=== PATIENT | male | born 1930 | race Caucasian/White ===

== ENCOUNTER 2019-10-30 22:55 | Emergency (ER) | payer OTHER, SELFPAY ==
--- OUTSIDE RECORDS SUMMARY | 2019-10-30 22:57 | XMS REPORT | Summary of Care ---
:1930 Author Organization [facility] - Health Address [address] [place] [address] Care Team Providers Name Role Phone Jazmyn Mcfadden MD Primary Care Provider Encounter Details Date Type Department Care Team Description 06/23/2019 Orders Only [facility] Doctor Unassigned, No [address] [facility] [place] [address] [address] [place] [address] Allergies No Known Allergiesdocumented as of this encounter (statuses as of 09/29/2019) Medications Medication Sig Dispensed Refills Start Date End Date Status carvedilol (COREG) Take 25 mg by mouth 0 Active 25 mg tablet 2 (two) times daily. digoxin (LANOXIN) Take 125 mcg by 0 Active 125 mcg tablet mouth daily. Take every other day warfarin (COUMADIN) Take 2.5 mg by mouth 0 Active 2.5 mg daily. Indications: tabletIndications: Pt takes 2.5 mg Q Pt takes 2.5 mg Q M/W/F M/W/F predniSONE 10 mg Prednisone 20 mg 12 tablet 0 04/03/2019 Active tabletIndications: daily for 3 days. SOB (shortness of Then 10 mg x 3 days. breath) Then 5 mg x 3 days. documented as of this encounter (statuses as of 09/29/2019) Active Problems Problem Noted Date NSVT (nonsustained ventricular tachycardia) 04/01/2019 NSTEMI (non-ST elevated myocardial infarction) 019 Acute diastolic congestive heart failure 03/29/2019 Essential hypertension 03/29/2019 Chronic atrial fibrillation 03/29/2019 Obesity (BMI 30-39.9) 03/29/2019 Hypertensive urgency 03/29/2019 Syncope 06/12/2015 documented as of this encounter (statuses as of 09/29/2019) Immunizations Name Administration Dates Next Due Influenza High Dose 04/03/2019 Td 06/12/2015 documented as of this encounter Social History Tobacco Use Types Packs/Day Years Used Date Former Smoker Cigarettes Smokeless Tobacco: Never Used Alcohol Use Drinks/Week oz/Week Comments No 0 Standard drinks or equivalent 0.0 Financial Resource Strain Answer Date Recorded How hard is it for you to pay for the very basics like Not h shakir at all 03/29/2019 food, housing, medical care, and heating? Food Insecurity Answer Date Recorded Within the past 12 months, you worried that your food would Never true 03/29/2019 run out before you got money to buy more. Within the past 12 months, the food you bought just didn't N ever true 03/29/2019 last and you didn't have money to get more. Transportation Needs Answer Date Recorded In the past 12 months, has lack of transportation kept you f rom No 03/29/2019 medical appointments or from getting medications? In the past 12 months, has lack of transportation kept you f rom No 03/29/2019 meetings, work, or getting things needed for daily living? Sex Assigned at Date Recorded Not on file Job Start Date Occupation Industry Not on file Not on file Not on file Travel History Travel Start Travel End No recent travel history available. documented as of this encounter Last Filed Vital Signs Not on filedocumented in this encounter Plan of Treatment Health Maintenance Due Date Last Done Comments DTaP,Tdap,and Td Vaccines (1 - Tdap) 1941 06/12/2015 Zoster Recombinant Vaccine (SHINGRIX) (1 of 2) 1982 Medicare Wellness Visit 1997 PNEUMOCOCCAL VACCINES 65+ (1 of 2 - PCV13) 1997 INFLUENZA VACCINE Completed 04/03/2019 documented as of this encounter Implants Implanted Type Area Rayon Winder Device Shelf Model / Identifier Expiration Date Ser ial / Lot Lens LENS Right: Hang 02/05/2020 [id number] / Implanted: Qty: 1 on 04/24/2015 by Berry Solo MD at [facility] Eye 1 [id number] / [id number] Acrysof Iq LENS Left: Eye Hang 02/05/2020 SN60WF / Implanted: Qty: 1 on 05/08/2015 by Berry Solo MD at [facility] 1 [id number] / [id number] 18 documented as of this encounter Procedures Procedure Name Priority Date/Time Associated Diagnosis Comme nts HOME HEALTH - OTHER Routine 06/23/2019 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 [facility] Medicare & B 82 [id number] [place] LISA [id number] AETNA AETNA INDEMNITY [id number] 2013-Lia Indemnity t documented as of this encounter
--- OUTSIDE RECORDS SUMMARY | 2019-10-30 22:57 | XMS REPORT | Summary of Care ---
:1930 Author Organization [facility] - Health Address [address] [place] [address] Care Team Providers Name Role Phone Jazmyn Mcfadden MD Primary Care Provider Encounter Details Date Type Department Care Team Description 06/30/2019 Orders Only [facility] Doctor Unassigned, No 301 [facility] [place] [address] [address] [place] [address] Allergies No Known Allergiesdocumented as of this [...] of this encounter Implants Implanted Type Area Electronic Prepress System Operator Device Shelf Model / Identifier Expiration Date Ser ial / Lot Lens LENS Right: Hang 02/05/2020 SN60WF / Implanted: Qty: 1 on 04/24/2015 by Berry Solo MD at [facility] Eye 1 [id number] / [id number] Acrysof Iq LENS Left: Eye Hang 02/05/2020 SN60WF / Implanted: Qty: 1 on 05/08/2015 by Berry Solo MD at [facility] 1 [id number] / [id number] 1 18 documented as of this encounter Procedures Procedure Name Priority Date/Time Associated Diagnosis Comme nts HOME HEALTH - OTHER Routine 06/30/2019 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 Medicare & B 82 [id number] [place] LISA [id number] AETNA AETNA INDEMNITY [id number] 2013-Lia Indemnity t documented as of this encounter
--- OUTSIDE RECORDS SUMMARY | 2019-10-30 22:57 | XMS REPORT | Summary of Care ---
:1930 Author Organization [facility] - Health Address [address] [place] [address] Care Team Providers Name Role Phone Jazmyn Mcfadden MD Primary Care Provider Encounter Details Date Type Department Care Team Description 06/27/2019 Orders Only [facility] Doctor Unassigned, No 301 [facility] [place] [address] [address] [place] [address] Allergies No Known Allergiesdocumented as of this encounter (statuses as of 09/22/2019) Medications Medication Sig Dispensed Refills Start Date [...] as of this encounter (statuses as of 09/22/2019) Active Problems Problem Noted Date NSVT (nonsustained ventricular tachycardia) 04/01/2019 NSTEMI (non-ST elevated myocardial infarction) 019 Acute diastolic congestive heart failure 03/29/2019 Essential hypertension 03/29/2019 Chronic atrial fibrillation 03/29/2019 Obesity (BMI 30-39.9) 03/29/2019 Hypertensive urgency 03/29/2019 Syncope 06/12/2015 documented as of this encounter (statuses as of 09/22/2019) Immunizations Name Administration Dates Next Due Influenza [...] of this encounter Implants Implanted Type Area Vp Strategic Planning Device Shelf Model / Identifier Expiration Date Ser ial / Lot Lens LENS Right: Hang 02/05/2020 SN60WF / Implanted: Qty: 1 on 04/24/2015 by Berry Solo MD at [facility] Eye 1 [id number] / [id number] Acrysof Iq LENS Left: Eye Hang 02/05/2020 SN60WF / Implanted: Qty: 1 on 05/08/2015 by Berry Solo MD at [facility] 1 [id number] / [id number] 1 18 documented as of this encounter Procedures Procedure Name Priority Date/Time Associated Diagnosis Comme nts HOME HEALTH - OTHER Routine 06/27/2019 12:01 AM 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 Medicare & B 82 [id number] [place] L[place] [id number] AETNA AETNA INDEMNITY [id number] 2013-Lia Indemnity t documented as of this encounter
--- OUTSIDE RECORDS SUMMARY | 2019-10-30 22:57 | XMS REPORT | Summary of Care ---
:1930 Author Organization [facility] - Health Address [address] [place] [address] Care Team Providers Name Role Phone Jazmyn Mcfadden MD Primary Care Provider Encounter Details Date Type Department Care Team Description 07/04/2019 Orders Only [facility] Doctor Unassigned, No 301 [facility] [place] [address] [address] [place] [address] Allergies No Known Allergiesdocumented as of this [...] of this encounter Implants Implanted Type Area Corporate Development Manager Device Shelf Model / Identifier Expiration Date Ser ial / Lot Lens LENS Right: Hang 02/05/2020 SN60WF / Implanted: Qty: 1 on 04/24/2015 by Berry Solo MD at [facility] Eye 1 [id number] / [id number] Acrysof Iq LENS Left: Eye Hang 02/05/2020 SN60WF / Implanted: Qty: 1 on 05/08/2015 by Berry Solo MD at [facility] 1 [id number] / [id number] 1 18 documented as of this encounter Procedures Procedure Name Priority Date/Time Associated Diagnosis Comme nts HOME HEALTH - OTHER Routine 07/04/2019 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 [facility] Medicare & B 82 [id number] [place] LISA [id number] AETNA AETNA INDEMNITY [id number] 2013-Lia Indemnity t documented as of this encounter
--- OUTSIDE RECORDS SUMMARY | 2019-10-30 22:57 | XMS REPORT ---
:1930 Author Organization [facility] t Address [address] [place] [address] Care Team Providers Name Role Phone Doctor Unassigned, Name Attending Clinician Unavailable 1, Lab Attending Clinician Unavailable Problems This patient has no known problems. Allergies, Adverse Reactions, Alerts This patient has no known allergies or adverse reactions. Medications This patient has no known medications. Procedures This patient has no known procedures. Encounters Start End Encounter Admission Attending Care Care Encounter Source Date/Time Date/Time Type Type Clinicians Facility Department ID 2019-07-25 2019-07-25 Orders Doctor GONZALEZ [id number] 00:00:00 00:00:00 Only UnassignedELIZABETH [id number] [place] [facility] [id number] 2019-07-14 2019-07-14 Orders Doctor GONZALEZ [id number] 00:00:00 00:00:00 Only UnassignedELIZABETH [id number] [place] [facility] [id number] [id number] [id number] 2019-07-05 2019-07-05 Orders Doctor GONZALEZ [id number] 00:00:00 00:00:00 Only Unassigned, ELIZABETH [id number] [place] [facility] [id number] [id number] 2019-07-04 2019-07-04 Orders Doctor GONZALEZ [id number] 00:00:00 00:00:00 Only UnassignedELIZABETH [id number] [place] [facility] [id number] [id number] 2019-06-30 2019-06-30 Orders Doctor LISA Kristine.2.840.114 [id number] 00:00:00 00:00:00 Only Unassigned, ELIZABETH [id number] [facility] 4.2.7.2.686 [id number] 2019-06-27 2019-06-27 Orders Doctor GONZALEZ Kristine.2.840.114 [id number] 00:00:00 00:00:00 Only Unassigned, ELIZABETH 350.1.13.10 [facility] 4.2.7.2.686 [id number] 2019-06-23 2019-06-23 Orders Doctor LISA Kristine.2.840.114 [id number] 00:00:00 00:00:00 Only Unassigned, ELIZABETH 350.1.13.10 [facility] 4.2.7.2.686 [id number] [id number] 2019-06-20 2019-06-20 Dial Printer 1, Adc [facility] 1.2.840.114 [id number] 14:37:41 14:52:41 Visit [place] 350.1.13.10 [place] 4.2.7.2.686 [place] [id number] 2019-06-16 2019-06-16 Orders Doctor GONZALEZ Kristine.2.840.114 [id number] 00:00:00 00:00:00 Only Unassigned, ELIZABETH 350.1.13.10 [place] [facility] 4.2.7.2.686 [id number] [id number] 2019-06-06 2019-06-06 Orders Doctor GONZALEZ Kristine.2.840.114 [id number] 00:00:00 00:00:00 Only Unassigned, ELIZABETH 350.1.13.10 [facility] 4.2.7.2.686 [id number] Results This patient has no known results.
[2019-10-30 23:21] LABS: Absolute Lymphocytes (CBC) 1.1 K/uL (0.7-4.9); Basophils % 0.8 % (0-1.3); Hematocrit 36.7 % (39.6-49.0); Lymphocytes % 18.3 % (15.3-44.8); MPV 8.9 fL (7.6-11.3); RBC Red Blood Cell Count 4.23 M/uL (4.33-5.43)
[2019-10-30 23:22] LABS: Protime INR 2.48
[2019-10-30 23:37] LABS: Albumin 3.2 g/dL (3.4-5.0); Bilirubin Direct 0.2 mg/dL (0-0.2); Bilirubin Total 0.8 mg/dL (0.2-1.0); Magnesium 2.4 mg/dL (1.8-2.4); Potassium 4.5 mmol/L (3.5-5.1); Protein, Total 6.4 g/dL (6.4-8.2); Troponin (Emerg Dept Use Only) 0.04 ng/mL (0.0-0.045)
[2019-10-31 01:18] VITALS: TEMP 98.6
[2019-10-31 01:20] VITALS: BP 133/89; O2SAT 98
--- NOTE | 2019-10-31 17:41 | RAD REPORT ---
EXAM DESCRIPTION: CT - Head Brain Wo Cont - 10/31/2019 2:51 am CLINICAL HISTORY: 89 years Male CONFUSED TECHNIQUE: Contiguous axial CT images obtained through the brain without IV contrast. Coronal and sa gittal reformatted images also provided. This CT exam was performed according to our departmental dose-optimization program, which includes on e or more of the following dose reduction techniques: automated exposure control, adjustment of the m A and/or kV according to patient size, and/or use of iterative reconstruction technique. COMPARISON: No prior exams provided for comparison. FINDINGS: There is no intracranial hemorrhage, extraaxial collection, or evidence of acute transcort ical infarction. Patchy foci of low attenuation within the periventricular and subcortical white matter are most lashaun tible with chronic microvascular disease. There is age-appropriate diffuse volume loss without mass e ffect or midline shift. Vascular calcifications are noted. No lesion of the skull base or calvarium is identified. The parana jodie sinuses and mastoid air cells are clear. IMPRESSION: No acute intracranial abnormality. Chronic microvascular changes and volume loss. Electronically signed by: Narcisa Akers MD 10/30/2019 11:45 PM CDT Due to temporary technical issues with the PACS/Fluency reporting system, reports are being signed by the in house radiologist without review as a courtesy to ensure prompt reporting. The interpreting r adiologist is fully responsible for the content of the report.
--- NOTE | 2019-11-01 13:10 | RAD REPORT ---
EXAM DESCRIPTION: RAD - CHEST SINGLE VIEW CLINICAL HISTORY: Transient alteration of awareness, shortness of breath. COMPARISON: None. TECHNIQUE: Potable chest was obtained 10/30/2019 tp1959 hours. FINDINGS: The lung volumes are low. Interstitial markings are prominent with baseline unknown, Heart size is within normal limits. Vasculature is accentuated by shallow inspiration. No focal consolidation is seen. Mild failure or volume overload could be masked. Early interstitial edema or infiltrate also potentially masked. No pneumothorax or large pleural effusion. Heart size is within normal range for portable imaging. IMPRESSION: 1. Low lung volume examination showing prominent interstitial pattern and vascular pattern. 2. As a shallow inspiration baseline examination mild failure or volume overload can't be excluded. Early interstitial edema or infiltrate can't be excluded.
--- NOTE | 2019-11-06 12:49 | EDPHYS ---
Physician Documentation [facility] Name: Jay Hathaway Age: 89 yrs Sex: Male : 1930 Arrival Date: 10/30/2019 Time: 22:55 Bed 6 Private MD: ED Physician Karl Guerrero HPI: 10/29 23:39 This 89 yrs old Male presents to ER via EMS with complaints of sent here from [facility] home for possible hallucinations for a month. 23:39 Onset: The symptoms/episode began/occurred gradually, 1 month(s) ago. Associated signs ma2 and symptoms: Pertinent negatives: agitation, blurred vision, chest pain, combativeness, diaphoresis, dizziness, headache. Current symptoms: In the emergency department the patient's symptoms are unchanged from the initial presentation. The patient has experienced similar episodes in the past. patient has no symptoms he is aox4, has ckd w baseline creatinine of 1.5 . Historical: - Home Meds: 23:12 aspirin 81 mg Oral chew 1 tab once daily [Active]; atorvastatin 20 mg oral tab 1 tab ea once daily [Active]; carvedilol 25 mg oral tab 1 tab 2 times per day [Active]; digoxin 125 mcg Oral tab 1 tab once daily [Active]; docusate sodium 100 mg Oral cap [Active]; furosemide 40 mg Oral tab [Active]; Miralax 17 gram Oral pwpk 1 packet once daily [Active]; spironolactone 25 mg Oral tab [Active]; warfarin 2.5 mg Oral tab 1 tab once daily [Active]; budesonide oral [Active]; ipratropium-albuterol 0.5 mg-3 mg(2.5 mg base)/3 mL Inhl neb [Active]; - PMHx: 23:03 Alzheimers; sg 23:12 Hypertension; Hyperlipidemia; COPD; ea - PSHx: 23:12 cataract surgery; ea - Immunization history:: Adult Immunizations unknown. - Social history:: Smoking status: unknown Patient/guardian denies using alcohol, street drugs, The patient lives with family. - Family history:: not pertinent. ROS: 23:39 Constitutional: Negative for fever, chills, and weight loss. ma2 23:39 All other systems are negative. Exam: 23:39 Constitutional: This is a well developed, well nourished patient who is awake, alert, ma2 and in no acute distress. Head/Face: Normocephalic, atraumatic. Eyes: Pupils equal round and reactive to light, extra-ocular motions intact. Lids and lashes normal. Conjunctiva and sclera are non-icteric and not injected. Cornea within normal limits. Periorbital areas with no swelling, redness, or edema. ENT: Nares patent. No nasal discharge, no septal abnormalities noted. Tympanic membranes are normal and external auditory canals are clear. Oropharynx with no redness, swelling, or masses, exudates, or evidence of obstruction, uvula midline. Mucous membranes moist. Neck: Trachea midline, no thyromegaly or masses palpated, and no cervical lymphadenopathy. Supple, full range of motion without nuchal rigidity, or vertebral point tenderness. No Meningismus. Chest/axilla: Normal chest wall appearance and motion. Nontender with no deformity. No lesions are appreciated. Cardiovascular: Regular rate and rhythm with a normal S1 and S2. No gallops, murmurs, or rubs. Normal PMI, no JVD. No pulse deficits. Respiratory: Lungs have equal breath sounds bilaterally, clear to auscultation and percussion. No rales, rhonchi or wheezes noted. No increased work of breathing, no retractions or nasal flaring. Abdomen/GI: Soft, non-tender, with normal bowel sounds. No distension or tympany. No guarding or rebound. No evidence of tenderness throughout. Back: No spinal tenderness. No costovertebral tenderness. Full range of motion. Skin: Warm, dry with normal turgor. Normal color with no rashes, no lesions, and no evidence of cellulitis. MS/ Extremity: Pulses equal, no cyanosis. Neurovascular intact. Full, normal range of motion. Neuro: Awake and alert, GCS 15, oriented to person, place, time, and situation. Cranial nerves II-XII grossly intact. Motor strength 5/5 in all extremities. Sensory grossly intact. Cerebellar exam normal. Normal gait. Vital Signs: 23:04 BP 142 / 80; Pulse 68; Resp 19; Temp 98.6; Pulse Ox 97% on R/A; Weight 104.33 kg; ea Height 6 ft. 1 in. (185.42 cm); 10/30 00:26 BP 133 / 89; Pulse 87; Resp 19; Pulse Ox 98% on R/A; ea 10/29 23:04 Body Mass Index 30.34 (104.33 kg, 185.42 cm) ea MDM: 10/29 22:59 Patient medically screened. ma2 23:39 Differential Diagnosis: electrolyte abnormality, alcohol intoxication, overdose, ma2 pneumonia, UTI, volume depletion. Data reviewed: vital signs, nurses notes. Counseling: I had a detailed discussion with the patient and/or guardian regarding: the historical points, exam findings, and any diagnostic results supporting the discharge/admit diagnosis, the presence of at least one elevated blood pressure reading (>120/80) during this emergency department visit, the need for outpatient follow up. Response to treatment: There is no appreciated change of the patient's symptoms at this time. ED course: he is here for occasional hallucinations that is been gong on for weeks, no ams exam is wnl, vs stayed wnl thoughout er stay. imaging and workup all wnl except elevated creatinine which is at baseline. he will see his pcp for halucinations . 10/29 23:07 Order name: Basic Metabolic Panel; Complete Time: 23:39 wv2 10/29 23:07 Order name: CBC with Diff; Complete Time: 23:39 [facility] 10/29 23:07 Order name: LFT's; Complete Time: 23:39 wv2 10/29 23:07 Order name: Magnesium; Complete Time: 23:39 [facility] 10/29 23:07 Order name: NT PRO-BNP; Complete Time: 23:39 wv2 10/29 23:07 Order name: PT-INR; Complete Time: 23:39 [facility] 10/29 23:07 Order name: Troponin (emerg Dept Use Only); Complete Time: 23:39 wv2 10/29 23:07 Order name: XRAY Chest (1 view) [facility] 10/29 23:07 Order name: Cardiac monitoring; Complete Time: 23:14 wv2 10/29 23:07 Order name: EKG - Nurse/Tech; Complete Time: 23:14 [facility] 10/29 23:07 Order name: IV Saline Lock; Complete Time: 23:14 [facility] 10/29 23:07 Order name: Labs collected and sent; Complete Time: 23:14 [facility] 10/29 23:07 Order name: O2 Per Protocol; Complete Time: 23:14 ma2 10/29 23:07 Order name: CT Head Brain wo Cont ma2 10/29 23:07 Order name: O2 Sat Monitoring; Complete Time: 23:14 ma2 Administered Medications: No medications were administered Disposition: 10/31/19 00:44 Discharged to Home. Impression: Hallucinations, unspecified. - Condition is Stable. - Medication Reconciliation Form, Thank You Letter, Antibiotic Education, Prescription Opioid Use form. - Follow up: Private Physician; When: Tomorrow; Reason: Continuance of care. Signatures: Dispatcher [employer] EDJun Motley RN RN sg Antunez, Elena, RN RN ea Alzahri, Mohammad, MD MD ma2 Corrections: (The following items were deleted from the chart) 10/30 00:58 00:44 10/31/2019 00:44 Discharged to Home. Impression: Hallucinations, unspecified. sg Condition is Stable. Forms are Medication Reconciliation Form, Thank You Letter, Antibiotic Education, Prescription Opioid Use. Follow up: Private Physician; When: Tomorrow; Reason: Continuance of care. ma2
--- NOTE | 2019-11-06 12:49 | ER ---
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 pt was last known well 10/28 during the AM, unsure specifically what time. the pt is normally aa\T\ox4, but this evening the staff report his is not aware of his surroundings and cannot remember where he is from time to time. Coronavirus screen: Proceed with normal triage. Ebola Screen: Patient negative for fever greater than or equal to 101.5 degrees Fahrenheit, and additional compatible Ebola Virus Disease symptoms Patient denies exposure to infectious person. Patient denies travel to an Ebola-affected area in the 21 days before illness onset. No symptoms or risks identified at this time. Initial Sepsis Screen: Does the patient meet any 2 criteria? No. Patient's initial sepsis screen is negative. Does the patient have a suspected source of infection? No. Patient's initial sepsis screen is negative. Risk Assessment: Do you want to hurt yourself or someone else? Patient reports no desire to harm self or others. Onset of symptoms was October 30, 2019. Care prior to arrival: Glucose check: 123. Transition of care: patient was received from another setting of care (long-term care facility), [facility]. 23:01 Method Of Arrival: EMS: [facility] sg 23:01 Acuity: AJIT 3 sg Historical: - Home Meds: 23:12 aspirin 81 mg Oral chew 1 tab once daily [Active]; atorvastatin 20 mg oral tab 1 tab ea once daily [Active]; carvedilol 25 mg oral tab 1 tab 2 times per day [Active]; digoxin 125 mcg Oral tab 1 tab once daily [Active]; docusate sodium 100 mg Oral cap [Active]; furosemide 40 mg Oral tab [Active]; Miralax 17 gram Oral pwpk 1 packet once daily [Active]; spironolactone 25 mg Oral tab [Active]; warfarin 2.5 mg Oral tab 1 tab once daily [Active]; budesonide oral [Active]; ipratropium-albuterol 0.5 mg-3 mg(2.5 mg base)/3 mL Inhl nebu [Active]; - PMHx: 23:03 Alzheimers; sg 23:12 Hypertension; Hyperlipidemia; COPD; ea - PSHx: 23:12 cataract surgery; ea - Immunization history:: Adult Immunizations unknown. - Social history:: Smoking status: unknown Patient/guardian denies using alcohol, street drugs, The patient lives with family. - Family history:: not pertinent. Screenin:06 Abuse screen: Denies threats or abuse. Nutritional screening: No deficits noted. ea Tuberculosis screening: No symptoms or risk factors identified. Fall Risk None identified. Assessment: 23:06 General: Appears comfortable, Behavior is calm, cooperative. Pain: Denies pain. Neuro: rv Level of Consciousness is awake, alert, obeys commands, Oriented to person, place, situation. Cardiovascular: Patient's skin is warm and dry. Respiratory: Airway is patent Breath sounds are clear bilaterally. Derm: Skin with poor turgor. 10/30 00:29 Reassessment: Pt resting with eyes close, respirations even and unlabored. Chest ea expansions even and symmetrical. Vital Signs: 10/29 23:04 BP 142 / 80; Pulse 68; Resp 19; Temp 98.6; Pulse Ox 97% on R/A; Weight 104.33 kg; ea Height 6 ft. 1 in. (185.42 cm); 10/30 00:26 BP 133 / 89; Pulse 87; Resp 19; Pulse Ox 98% on R/A; ea 10/29 23:04 Body Mass Index 30.34 (104.33 kg, 185.42 cm) ea ED Course: 10/29 22:55 Patient arrived in ED. sg 22:57 Mika Sandoval RN is Primary Nurse. rv 22:59 Karl Guerrero MD is Attending Physician. ma2 23:01 Arm band placed on. sg 23:03 Triage completed. sg 23:05 Inserted saline lock: 20 gauge in right antecubital area, using aseptic technique. rv Blood collected. 23:06 Patient has correct armband on for positive identification. Bed in low position. Call ea light in reach. Side rails up X2. 23:35 X-ray completed. Patient tolerated procedure well. 1 23:36 Patient moved back from radiology. [facility] 23:36 XRAY Chest (1 view) In Process Unspecified. EDMS 23:38 CT Head Brain wo Cont In Process Unspecified. EDMS Administered Medications: No medications were administered Outcome: 10/30 00:44 Discharge ordered by . [facility] 00:58 Patient left the ED. sg Signatures: Dispatcher [employer] EDMS Jun Weinstein, RN RN Lamar Calvillo [facility] Jessenia Lehman, RN RN Karl Sun MD MD [facility] Mika Sandoval, RN RN rv
== END 2019-10-31 00:58 | disposition home or self-care (01) ==
LOC: ER 22:55
DX: R44.3 Hallucinations, unspecified (principal); I10 Essential (primary) hypertension; G30.9 Alzheimer's disease, unspecified; F02.80 Dementia in other diseases classified elsewhere, unspecified severity, without behavioral disturbance, psychotic disturbance, mood disturbance, and anxiety; E78.5 Hyperlipidemia, unspecified; J44.9 Chronic obstructive pulmonary disease, unspecified; Z79.01 Long term (current) use of anticoagulants; Z79.82 Long term (current) use of aspirin
CPT/HCPCS: 36415; 70450; 71045; 80048; 80076; 83735; 83880; 84484; 85025; 85610; 99284

== ENCOUNTER 2020-05-28 15:32 | Emergency (ER) | payer OTHER, SELFPAY ==
--- OUTSIDE RECORDS SUMMARY | 2020-05-28 15:35 | XMS REPORT | Continuity of Care Document ---
:1930 Author Organization [facility] t Address [address] [place] [address] Care Team Providers Name Role Phone Doctor [...] Facility Department ID 2019-07-25 2019-07-25 Orders Doctor LISA [id number] 00:00:00 00:00:00 Only Unassigned, ELIZABETH [id number] [place] [facility] [id number] [id number] 2019-07-14 2019-07-14 Orders Doctor GONZALEZ [id number] 00:00:00 00:00:00 Only Unassigned, ELIZABETH [id number] [place] [facility] [id number] [id number] 2019-07-05 2019-07-05 Orders Doctor LISA [id number] 00:00:00 00:00:00 Only Unassigned, ELIZABETH [id number] [place] [facility] [id number] [id number] 2019-07-04 2019-07-04 Orders Doctor LISA Carmona.[id number] 00:00:00 00:00:00 Only Unassigned, ELIZABETH [id number] [place] [facility] [id number] [id number] 2019-06-30 2019-06-30 Orders Doctor LISA Carmona.[id number] 00:00:00 00:00:00 Only Unassigned, ELIZABETH [id number] [place] [facility] [id number] [id number] 2019-06-27 2019-06-27 Orders Doctor LISA Carmona.[id number] [id number] 00:00:00 00:00:00 Only Unassigned, ELIZABETH [id number] [place] [facility] [id number] [id number] 2019-06-23 2019-06-23 Orders Doctor LISA Kristine.[id number] 00:00:00 00:00:00 Only Unassigned, ELIZABETH [id number] [place] [facility] [id number] [id number] 2019-06-20 2019-06-20 Polls Or Surveys Interviewer 1, Adc Lab [facility] [id number] 14:37:41 14:52:41 Visit [place] [id number] [place] [id number] [place] [id number] [id number] 2019-06-16 2019-06-16 Orders Doctor LISA Kristine.[id number] 00:00:00 00:00:00 Only Unassigned, [place]IZ[place]ETH [id number] [place] [facility] [id number] [id number] 2019-06-06 2019-06-06 Orders Doctor GONZALEZ Kristine.2.840.114 [id number] 00:00:00 00:00:00 Only Unassigned, ELIZABETH [id number] [place] [facility] [id number] [id number] Results This patient has no known results.
[2020-05-28 16:50] LABS: Hematocrit 34.9 % (39.6-49.0); Lymphocytes % 23.9 % (15.3-44.8); MPV 9.2 fL (7.6-11.3); RBC Red Blood Cell Count 4.09 M/uL (4.33-5.43)
[2020-05-28 16:54] LABS: Protime INR 1.16
--- NOTE | 2020-05-28 16:56 | RAD REPORT ---
EXAM DESCRIPTION: RAD - Chest Single View - 05/28/2020 4:33 pm CLINICAL HISTORY: AMS, AFib, CHF history COMPARISON: October 29 TECHNIQUE: AP portable chest image was obtained 05/28/2020 4:33 pm . FINDINGS: Lung volumes are similar to the comparison. No focal consolidations seen. Interstitial mar kings are prominent and increased over prior imaging. Patchy ground-glass opacities are present in th e lung mccallum slightly worse on the left. Cardiomegaly is present with mild vascular engorgement. No measurable pleural effusion and no pneumothorax. No acute bony abnormality seen. No acute aortic find ings suspected. IMPRESSION: Heart, vasculature and lung markings are all prominent and increased over October 30, 2019 i maging. CHF/volume overload would be favored. Infectious etiology is lesser in likelihood but needs correlati on with clinical presentation.
[2020-05-28 17:11] LABS: Albumin 3.3 g/dL (3.4-5.0); Bilirubin Direct 0.4 mg/dL (0-0.2); Bilirubin Total 1.4 mg/dL (0.2-1.0); Magnesium 2.4 mg/dL (1.8-2.4); Potassium 4.1 mmol/L (3.5-5.1); Protein, Total 6.6 g/dL (6.4-8.2); Troponin (Emerg Dept Use Only) 0.04 ng/mL (0.0-0.045)
--- NOTE | 2020-05-28 17:12 | RAD REPORT ---
EXAM DESCRIPTION: CT - Head Brain Wo Cont - 05/28/2020 5:05 pm CLINICAL HISTORY: CONFUSED, transient alteration awareness COMPARISON: Head Brain Wo Cont dated 10/30/2019 TECHNIQUE: Axial 5 mm thick images of the head were obtained without IV contrast. All CT scans are performed using dose optimization technique as appropriate and may include automated exposure control or mA/KV adjustment according to patient size. FINDINGS: No intracranial hemorrhage, mass, edema or shift of mid-line structures. No acute infarcti on changes seen. No cortical edema or sulcal effacement. Moderate severity atrophy and mild to modera te chronic ischemic changes are present not substantially different from comparison. Ventricles are i n proportion to volume loss. Dense arterial tree calcifications are present. Mastoid air cells and visualized portions of the paranasal sinuses are clear. No acute bony findings. IMPRESSION: No acute intracranial finding. Moderate severity atrophy and chronic ischemic change not substantially different from October 2019.
--- NOTE | 2020-05-28 18:16 | EDPHYS ---
Physician Documentation [facility] Name: Jay Hathaway Age: 89 yrs Sex: Male : 1930 Arrival Date: 05/28/2020 Time: 15:34 Bed 4 Private MD: ED Physician Ronaldo Matos HPI: 05/29 19:20 This 89 yrs old Male presents to ER via EMS with complaints of CONFUSION. kdr 19:20 The patient presents with confusion. Onset: The symptoms/episode began/occurred at an kdr unknown time. Possible causes: CVA or TIA, sepsis. Associated signs and symptoms: The patient has no apparent associated signs or symptoms. Current symptoms: In the emergency department the patient's symptoms have resolved, the patient is alert and fully oriented, has normal speech, has normal responsiveness, has no confusion. Patient's baseline: Neuro: alert and fully oriented, Motor: no deficits, Ambulation: walks without assistance, Speech: normal for age. It is unknown whether or not the patient has had similar symptoms in the past. The patient has not recently seen a physician. Historical: - Allergies: 05/28 15:38 No Known Allergies; bp - PMHx: 15:38 Hyperlipidemia; Hypertension; Atrial Fib; CHF; COPD; Alzheimers; bp - Immunization history:: Adult Immunizations up to date. - Social history:: Smoking status: Patient denies any tobacco usage or history of. ROS: 05/29 19:20 Constitutional: Negative for fever, chills, and weight loss, Eyes: Negative for injury, kdr pain, redness, and discharge, Neck: Negative for injury, pain, and swelling, Cardiovascular: Negative for chest pain, palpitations, and edema, Respiratory: Negative for shortness of breath, cough, wheezing, and pleuritic chest pain, Abdomen/GI: Negative for abdominal pain, nausea, vomiting, diarrhea, and constipation, Back: Negative for injury and pain, : Negative for injury, bleeding, discharge, and swelling, MS/Extremity: Negative for injury and deformity, Skin: Negative for injury, rash, and discoloration, Neuro: Negative for headache, weakness, numbness, tingling, and seizure activity. Psych: Negative for depression, anxiety, suicide ideation, homicidal ideation, and hallucinations, Allergy/Immunology: Negative for hives, rash, and allergies, Endocrine: Negative for neck swelling, polydipsia, polyuria, polyphagia, and marked weight changes, Hematologic/Lymphatic: Negative for swollen nodes, abnormal bleeding, and unusual bruising. Exam: 05/28 18:20 ECG was reviewed by the Attending Physician. kdr 05/29 19:20 Constitutional: This is a well developed, well nourished patient who is awake, alert, kdr and in no acute distress. Head/Face: Normocephalic, atraumatic. Eyes: Pupils equal round and reactive to light, extra-ocular motions intact. Lids and lashes normal. Conjunctiva and sclera are non-icteric and not injected. Cornea within normal limits. Periorbital areas with no swelling, redness, or edema. Neck: Trachea midline, no thyromegaly or masses palpated, and no cervical lymphadenopathy. Supple, full range of motion without nuchal rigidity, or vertebral point tenderness. No Meningismus. Chest/axilla: Normal chest wall appearance and motion. Nontender with no deformity. No lesions are appreciated. Cardiovascular: Regular rate and rhythm with a normal S1 and S2. No gallops, murmurs, or rubs. Normal PMI, no JVD. No pulse deficits. Respiratory: Lungs have equal breath sounds bilaterally, clear to auscultation and percussion. No rales, rhonchi or wheezes noted. No increased work of breathing, no retractions or nasal flaring. Abdomen/GI: Soft, non-tender, with normal bowel sounds. No distension or tympany. No guarding or rebound. No evidence of tenderness throughout. Back: No spinal tenderness. No costovertebral tenderness. Full range of motion. Skin: Warm, dry with normal turgor. Normal color with no rashes, no lesions, and no evidence of cellulitis. MS/ Extremity: Pulses equal, no cyanosis. Neurovascular intact. Full, normal range of motion. Neuro: Awake and alert, GCS 15, oriented to person, place, time, and situation. Cranial nerves II-XII grossly intact. Motor strength 5/5 in all extremities. Sensory grossly intact. Cerebellar exam normal. Normal gait. Psych: Awake, alert, with orientation to person, place and time. Behavior, mood, and affect are within normal limits. Vital Signs: 05/28 15:35 BP 193 / 83; Pulse 87; Resp 16; Temp 97.8; Pulse Ox 99% ; Weight 108.86 kg; Height 6 bp ft. 1 in. (185.42 cm); 16:48 BP 151 / 77; Pulse 79; Resp 16; Pulse Ox 100% ; bp 17:37 BP 163 / 57; Pulse 67; Resp 17; Pulse Ox 97% ; bp 19:44 BP 139 / 86; Pulse 91; Resp 16; Temp 98; Pulse Ox 97% on R/A; rv 15:35 Body Mass Index 31.66 (108.86 kg, 185.42 cm) bp MDM: 18:15 Patient medically screened. [facility] 05/29 19:20 Data reviewed: vital signs, nurses notes, lab test result(s), radiologic studies. kdr Counseling: I had a detailed discussion with the patient and/or guardian regarding: the historical points, exam findings, and any diagnostic results supporting the discharge/admit diagnosis, lab results, radiology results, the need for outpatient follow up. 05/28 16:21 Order name: Basic Metabolic Panel; Complete Time: 18: [facility] 05/28 16:21 Order name: CBC with Diff; Complete Time: 18: kdr 05/28 16:21 Order name: LFT's; Complete Time: 18: kdr 05/28 16:21 Order name: Magnesium; Complete Time: 18: [facility] 05/28 16:21 Order name: NT PRO-BNP; Complete Time: 18: kdr 05/28 16:21 Order name: PT-INR; Complete Time: 18: [facility] 05/28 16:21 Order name: Troponin (emerg Dept Use Only); Complete Time: 18: [facility] 05/28 16:21 Order name: XRAY Chest (1 view); Complete Time: 18:09 kdr 05/28 16:21 Order name: EKG; Complete Time: 16: kdr 05/28 16:21 Order name: Cardiac monitoring; Complete Time: 16:45 kdr 05/28 16:21 Order name: EKG - Nurse/Tech; Complete Time: 16:45 [facility] 05/28 16:21 Order name: IV Saline Lock; Complete Time: 16:45 [facility] 05/28 16:21 Order name: Labs collected and sent; Complete Time: 16:45 [facility] 05/28 16:22 Order name: CT Head Brain wo Cont; Complete Time: 18:09 kdr 05/28 16:21 Order name: O2 Per Protocol; Complete Time: 16:47 kdr 05/28 16:21 Order name: O2 Sat Monitoring; Complete Time: 16:47 kdr EC/22 18:20 Rate is 81 beats/min. Rhythm is irregularly irregular, A fib with No ectopy. QRS [place] kdr is Normal. VT interval is normal. QRS interval is normal. Clinical impression: Atrial Fibrillation. Administered Medications: No medications were administered Disposition: 05/28/20 18:15 Discharged to Home. Impression: Confusion. - Condition is Fair. - Discharge Instructions: Confusion. - Medication Reconciliation Form, Thank You Letter form. - Follow up: Private Physician; When: 2 - 3 days; Reason: If symptoms return, Further diagnostic work-up, Recheck today's complaints, Continuance of care, Re-evaluation by your physician. - Problem is new. - Symptoms are resolved. Signatures: Dispatcher [employer] EDRonaldo Kilgore MD MD kdr Preet Villarreal, RN RN Mika Sandoval, DIANE RN rv Corrections: (The following items were deleted from the chart) 19:46 18:15 05/28/2020 18:15 Discharged to Home. Impression: Confusion. Condition is Fair. rv Forms are Medication Reconciliation Form, Thank You Letter, Antibiotic Education, Prescription Opioid Use. Follow up: Private Physician; When: 2 - 3 days; Reason: If symptoms return, Further diagnostic work-up, Recheck today's complaints, Continuance of care, Re-evaluation by your physician. Problem is new. Symptoms are resolved. kdr
--- NOTE | 2020-05-28 18:16 | ER ---
Nurse's Notes [facility] Name: Jay Hathaway Age: 89 yrs Sex: Male : 1930 Arrival Date: 05/28/2020 Time: 15:34 Bed 4 Private MD: Diagnosis: Confusion Presentation: 05/28 15:35 Chief complaint: EMS states: LONG TERM STAFF CLAIMS HE IS ALTERED. Coronavirus bp screen: At this time, the client does not indicate any symptoms associated with coronavirus-19. Ebola Screen: No symptoms or risks identified at this time. Initial Sepsis Screen: Does the patient meet any 2 criteria? Altered Mental Status. No. Patient's initial sepsis screen is negative. Does the patient have a suspected source of infection? No. Patient's initial sepsis screen is negative. Risk Assessment: Do you want to hurt yourself or someone else? Patient reports no desire to harm self or others. Note S/S x2 DAYS, PER [place] STAFF. Onset of symptoms is unknown. 15:35 Method Of Arrival: EMS: [facility] bp 15:35 Acuity: AJIT 3 bp Triage Assessment: 15:38 General: Appears in no apparent distress. comfortable, Behavior is calm, cooperative, bp appropriate for age. Pain: Denies pain. EENT: No deficits noted. Neuro: Level of Consciousness is awake, alert, obeys commands, Oriented to person, place, time, situation, Appropriate for age Reports EXPRESSIVE APHASIA. Cardiovascular: Rhythm is sinus rhythm. Respiratory: No deficits noted. GI: No signs and/or symptoms were reported involving the gastrointestinal system. : No signs and/or symptoms were reported regarding the genitourinary system. Derm: No deficits noted. Musculoskeletal: No deficits noted. Historical: - Allergies: 15:38 No Known Allergies; bp - PMHx: 15:38 Hyperlipidemia; Hypertension; Atrial Fib; CHF; COPD; Alzheimers; bp - Immunization history:: Adult Immunizations up to date. - Social history:: Smoking status: Patient denies any tobacco usage or history of. Screenin:45 Abuse screen: Denies threats or abuse. Denies injuries from another. Nutritional bp screening: No deficits noted. Tuberculosis screening: No symptoms or risk factors identified. Fall Risk None identified. Assessment: 15:30 General: SEE TRIAGE NOTE. bp 16:47 Reassessment: No changes from previously documented assessment. Patient and/or family bp updated on plan of care and expected duration. Pain level reassessed. Patient is alert, oriented x 3, equal unlabored respirations, skin warm/dry/pink. UOP PENDING. 17:10 Reassessment: PT RETURNED FROM CT. bp 17:38 Reassessment: ALL CURRENT ORDERS COMPLETED. Neuro: Level of Consciousness is awake, bp alert, obeys commands, Oriented to person, place, time, situation, Appropriate for age Punch Finisher are equal bilaterally Moves all extremities. Full function Speech is normal, Facial symmetry appears normal. 18:49 Reassessment: D/C ON HOLD. [facility] INN ATTEMPTING TO ARRANGE TRANSPORT. bp Vital Signs: 15:35 BP 193 / 83; Pulse 87; Resp 16; Temp 97.8; Pulse Ox 99% ; Weight 108.86 kg; Height 6 bp ft. 1 in. (185.42 cm); 16:48 BP 151 / 77; Pulse 79; Resp 16; Pulse Ox 100% ; bp 17:37 BP 163 / 57; Pulse 67; Resp 17; Pulse Ox 97% ; bp 19:44 BP 139 / 86; Pulse 91; Resp 16; Temp 98; Pulse Ox 97% on R/A; rv 15:35 Body Mass Index 31.66 (108.86 kg, 185.42 cm) bp ED Course: 15:34 Patient arrived in ED. bp 15:37 Triage completed. bp 15:41 Arm band placed on. bp 15:45 Patient has correct armband on for positive identification. Bed in low position. Call bp light in reach. Side rails up X2. 15:59 Ronaldo Matos MD is Attending Physician. kdr 16:20 Inserted saline lock: 20 gauge in right antecubital area, using aseptic technique. bp Blood collected. 16:22 Preet Villarreal, RN is Primary Nurse. bp 16:33 XRAY Chest (1 view) In Process Unspecified. EDMS 16:39 EKG done, by ED staff, reviewed by Ronaldo Matos MD. sv 17:04 CT Head Brain wo Cont In Process Unspecified. EDMS 19:45 No provider procedures requiring assistance completed. IV discontinued, intact, rv bleeding controlled, No redness/swelling at site. Administered Medications: No medications were administered Outcome: 18:15 Discharge ordered by . kdr 19:45 Discharged to home via wheelchair, with family. rv 19:45 Condition: good 19:45 Discharge instructions given to family, Instructed on discharge instructions, follow up and referral plans. Demonstrated understanding of instructions, follow-up care. 19:46 Patient left the ED. rv Signatures: Dispatcher [employer] Mila Scanlon RN RN sv Rittger, Kevin, MD MD kdr Peltier, Brian, RN RN bp Vicente, Ronaldo, RN RN rv
[2020-05-29 11:19] VITALS: O2SAT 97
[2020-05-29 11:20] VITALS: BP 139/86; TEMP 98
== END 2020-05-28 19:46 | disposition home or self-care (01) ==
LOC: ER 15:32
DX: R41.0 Disorientation, unspecified (principal); I10 Essential (primary) hypertension; G30.9 Alzheimer's disease, unspecified; F02.80 Dementia in other diseases classified elsewhere, unspecified severity, without behavioral disturbance, psychotic disturbance, mood disturbance, and anxiety
CPT/HCPCS: 36415; 70450; 71045; 80048; 80076; 83735; 83880; 84484; 85025; 85610; 93005; 99284

== ENCOUNTER 2020-09-11 20:36 | Emergency (ER) | payer OTHER, SELFPAY ==
[2020-09-11 21:46] LABS: Absolute Lymphocytes (CBC) 0.9 K/uL (0.7-4.9); Basophils % 0.9 % (0-1.3); Hematocrit 33.9 % (39.6-49.0); Lymphocytes % 18.8 % (15.3-44.8); MPV 8.6 fL (7.6-11.3); Protime INR 1.82; RBC Red Blood Cell Count 4.05 M/uL (4.33-5.43)
[2020-09-11 21:59] LABS: Bilirubin Direct 0.3 mg/dL (0-0.2); Magnesium 2.2 mg/dL (1.8-2.4); Potassium 4.4 mmol/L (3.5-5.1); Protein, Total 6.2 g/dL (6.4-8.2); Troponin (Emerg Dept Use Only) 0.02 ng/mL (0.0-0.045)
--- NOTE | 2020-09-11 22:11 | ER ---
Nurse's Notes [facility] Name: Jay Hathaway Age: 89 yrs Sex: Male : 1930 Arrival Date: 09/11/2020 Time: 20:36 Bed 2 Private MD: Diagnosis: Uncontrolled hypertension. Asymptomatic Presentation: 09/11 20:38 Chief complaint: EMS states: nursing staff from [facility] in called and reported rr5 patient's systolic BP 290. when we arrived we checked it was systolic 220. they reported they did not give his BP medication tonight. latest BP we got 129/100 mmHG. no weakness, no dizziness reported. 20:38 Coronavirus screen: Client denies travel out of the [place] in the last 14 days. At this rr5 time, the client does not indicate any symptoms associated with coronavirus-19. Ebola Screen: Patient negative for fever greater than or equal to 101.5 degrees Fahrenheit, and additional compatible Ebola Virus Disease symptoms Patient denies exposure to infectious person. Patient denies travel to an Ebola-affected area in the 21 days before illness onset. Initial Sepsis Screen: Does the patient meet any 2 criteria? No. Patient's initial sepsis screen is negative. Does the patient have a suspected source of infection? No. Patient's initial sepsis screen is negative. Risk Assessment: Do you want to hurt yourself or someone else? Patient reports no desire to harm self or others. Onset of symptoms was September 11, 2020. 20:38 Method Of Arrival: EMS: [facility] rr5 20:38 Acuity: AJIT 3 rr5 20:38 Transition of care: [facility]. rr5 Historical: - Allergies: 20:52 No Known Allergies; rr5 - Home Meds: 20:52 carvedilol 25 mg Oral tab 1 tab 2 times per day [Active]; amlodipine 5 mg tab 1 tab rr5 once daily [Active]; atorvastatin 20 mg Oral tab 1 tab once daily [Active]; aspirin 81 mg Oral chew 1 tab once daily [Active]; digoxin 125 mcg Oral tab 1 tab once daily [Active]; furosemide 40 mg Oral tab 1 tab once daily [Active]; olanzapine 2.5 mg oral tab 1 tabs HS [Active]; polyethylene glycol 3350 17 gram/dose oral powd once daily [Active]; Refresh Tears 0.5 % ophthalmic drop [Active]; valsartan 40 mg oral tab 1 tab once daily [Active]; warfarin 2.5 mg Oral tab 1 tab once daily [Active]; - PMHx: 20:52 Alzheimers; Atrial Fib; CHF; COPD; Hyperlipidemia; Hypertension; chronic kidney rr5 disease; hallucination; - Immunization history:: Adult Immunizations up to date. - Social history:: Smoking status: unknown. Screenin:53 Abuse screen: Denies threats or abuse. Denies injuries from another. Nutritional rr5 screening: No deficits noted. Tuberculosis screening: No symptoms or risk factors identified. Fall Risk Gait- Impaired (20 pts.). Mental Status- Oriented to own ability (0 pts). Total [place] Fall Scale indicates No Risk (0-24 pts). Assessment: 20:52 General: Appears in no apparent distress. comfortable, Behavior is calm, cooperative, rr5 appropriate for age. Pain: Denies pain. Neuro: Level of Consciousness is awake, alert, obeys commands, Oriented to person, place, time. Cardiovascular: Capillary refill < 3 seconds Patient's skin is warm and dry. Respiratory: Airway is patent Respiratory effort is even, unlabored, Respiratory pattern is regular, symmetrical. GI: Abdomen is round non-distended. : No signs and/or symptoms were reported regarding the genitourinary system. EENT: No signs and/or symptoms were reported regarding the EENT system. Derm: Skin is fragile, is thin, Skin temperature is warm. Musculoskeletal: Capillary refill < 3 seconds. 22:00 Reassessment: Patient appears in no apparent distress at this time. No changes from rr5 previously documented assessment. Patient is alert, oriented x 3, equal unlabored respirations, skin warm/dry/pink. 23:05 Reassessment: Patient appears in no apparent distress at this time. Patient is alert, rr5 oriented x 3, equal unlabored respirations, skin warm/dry/pink. for discharge awaiting for transport. Vital Signs: 20:38 BP 164 / 87; Pulse 83; Resp 18; Temp 98.3; Pulse Ox 99% on R/A; rv 20:38 BP 164 / 87; Pulse 93; Resp 19; Temp 98.3; Pulse Ox 99% ; Weight 108.86 kg; Height 6 rr5 ft. 1 in. (185.42 cm); Pain 0/10; 21:15 BP 111 / 75; Pulse 85; Resp 16; Pulse Ox 98% ; rr5 22:12 BP 131 / 73; Pulse 80; Resp 19; Pulse Ox 98% ; rr5 22:21 BP 102 / 84; Pulse 64; Resp 15; Pulse Ox 98% on R/A; rv 23:06 BP 115 / 75; Pulse 69; Resp 17; Pulse Ox 98% ; rr5 20:38 Body Mass Index 31.66 (108.86 kg, 185.42 cm) rr5 ED Course: 20:37 Patient arrived in ED. rv 20:43 Bulmaro Bustamante, RN is Primary Nurse. rr5 20:46 Triage completed. rr5 20:53 Patient has correct armband on for positive identification. Bed in low position. Call rr5 light in reach. Side rails up X2. Pulse ox on. NIBP on. 21:00 Patient placed in an exam room. rv 21:16 Maurilio Wesley MD is Attending Physician. pkl 21:27 Initial lab(s) drawn, by va, sent to lab. Inserted saline lock: 20 gauge in right rv antecubital area, using aseptic technique. Blood collected. 22:22 No provider procedures requiring assistance completed. IV discontinued, intact, rv bleeding controlled, No redness/swelling at site. Pressure dressing applied. Administered Medications: No medications were administered Outcome: 22:11 Discharge ordered by . pkl 22:23 Discharged to home via wheelchair, with friend. rv 22:23 Condition: good 22:23 Discharge instructions given to patient, Instructed on discharge instructions, follow up and referral plans. Demonstrated understanding of instructions, follow-up care. 23:06 Patient left the ED. rr5 Signatures: Maurilio Wesley MD MD pkl Vicente, Ronaldo, RN RN rv Bulmaro Bustamante, DIANE RN rr5 Corrections: (The following items were deleted from the chart) 20:54 20:38 Chief complaint: EMS states: nursing staff from [facility] in called and reported rr5 patient's systolic BP 290. when we arrive we checked it was systolic 220. they reported they did not give his BP medication tonight. latest BP we got 129/100 mmHG. no weakness, no dizziness reported. rr5 23:06 23:00 Reassessment: Patient appears in no apparent distress at this time. Patient is rr5 alert, oriented x 3, equal unlabored respirations, skin warm/dry/pink. for discharge awaiting for EMS transport rr5
--- NOTE | 2020-09-11 22:12 | EDPHYS ---
Physician Documentation [facility] [place], [place] Name: Jay Hathaway Age: 89 yrs Sex: Male : 1930 Arrival Date: 09/11/2020 Time: 20:36 Bed 2 Private MD: ED Physician Maurilio Wesley HPI: 09/11 21:48 This 89 yrs old Male presents to ER via EMS with complaints of High Blood pkl Pressure. 21:48 The patient has elevated blood pressure and discovered this assisted living complex. pkl Onset: The symptoms/episode began/occurred just prior to arrival. The patient has experienced similar episodes in the past, several times. 21:48 Associated signs and symptoms: The patient has no apparent associated signs or symptoms.pkl Historical: - Allergies: 20:52 No Known Allergies; rr5 - Home Meds: 20:52 carvedilol 25 mg Oral tab 1 tab 2 times per day [Active]; amlodipine 5 mg tab 1 tab rr5 once daily [Active]; atorvastatin 20 mg Oral tab 1 tab once daily [Active]; aspirin 81 mg Oral chew 1 tab once daily [Active]; digoxin 125 mcg Oral tab 1 tab once daily [Active]; furosemide 40 mg Oral tab 1 tab once daily [Active]; olanzapine 2.5 mg oral tab 1 tabs HS [Active]; polyethylene glycol 3350 17 gram/dose oral powd once daily [Active]; Refresh Tears 0.5 % ophthalmic drop [Active]; valsartan 40 mg oral tab 1 tab once daily [Active]; warfarin 2.5 mg Oral tab 1 tab once daily [Active]; - PMHx: 20:52 Alzheimers; Atrial Fib; CHF; COPD; Hyperlipidemia; Hypertension; chronic kidney rr5 disease; hallucination; - Immunization history:: Adult Immunizations up to date. - Social history:: Smoking status: unknown. ROS: 21:48 Eyes: Negative for injury, pain, redness, and discharge, ENT: Negative for injury, pkl pain, and discharge, Neck: Negative for injury, pain, and swelling. 21:48 Cardiovascular: Positive for severe hypertension. 21:48 Respiratory: Negative for cough, shortness of breath. 21:48 Abdomen/GI: Negative for abdominal pain, nausea, vomiting, and diarrhea. 21:48 Back: Negative for acute changes. 21:48 : Negative for urinary symptoms. 21:48 MS/extremity: Negative for acute changes. 21:48 Skin: Negative for rash. 21:48 Neuro: Negative for altered mental status, headache, loss of consciousness. Exam: 21:48 Head/Face: Normocephalic, atraumatic. Eyes: Pupils equal round and reactive to light, pkl extra-ocular motions intact. Lids and lashes normal. Conjunctiva and sclera are non-icteric and not injected. Cornea within normal limits. Periorbital areas with no swelling, redness, or edema. ENT: Nares patent. No nasal discharge, no septal abnormalities noted. Tympanic membranes are normal and external auditory canals are clear. Oropharynx with no redness, swelling, or masses, exudates, or evidence of obstruction, uvula midline. Mucous membranes moist. Neck: Trachea midline, no thyromegaly or masses palpated, and no cervical lymphadenopathy. Supple, full range of motion without nuchal rigidity, or vertebral point tenderness. No Meningismus. Chest/axilla: Normal chest wall appearance and motion. Nontender with no deformity. No lesions are appreciated. Cardiovascular: Regular rate and rhythm with a normal S1 and S2. No gallops, murmurs, or rubs. Normal PMI, no JVD. No pulse deficits. Respiratory: Lungs have equal breath sounds bilaterally, clear to auscultation and percussion. No rales, rhonchi or wheezes noted. No increased work of breathing, no retractions or nasal flaring. Abdomen/GI: Soft, non-tender, with normal bowel sounds. No distension or tympany. No guarding or rebound. No evidence of tenderness throughout. Back: No spinal tenderness. No costovertebral tenderness. Full range of motion. Skin: Warm, dry with normal turgor. Normal color with no rashes, no lesions, and no evidence of cellulitis. MS/ Extremity: Pulses equal, no cyanosis. Neurovascular intact. Full, normal range of motion. Neuro: Awake and alert, GCS 15, oriented to person, place, time, and situation. Cranial nerves II-XII grossly intact. Motor strength 5/5 in all extremities. Sensory grossly intact. Cerebellar exam normal. Normal gait. Vital Signs: 20:38 BP 164 / 87; Pulse 83; Resp 18; Temp 98.3; Pulse Ox 99% on R/A; rv 20:38 BP 164 / 87; Pulse 93; Resp 19; Temp 98.3; Pulse Ox 99% ; Weight 108.86 kg; Height 6 rr5 ft. 1 in. (185.42 cm); Pain 0/10; 21:15 BP 111 / 75; Pulse 85; Resp 16; Pulse Ox 98% ; rr5 22:12 BP 131 / 73; Pulse 80; Resp 19; Pulse Ox 98% ; rr5 22:21 BP 102 / 84; Pulse 64; Resp 15; Pulse Ox 98% on R/A; rv 23:06 BP 115 / 75; Pulse 69; Resp 17; Pulse Ox 98% ; rr5 20:38 Body Mass Index 31.66 (108.86 kg, 185.42 cm) rr5 MDM: 21:16 Patient medically screened. pkl 22:05 Data reviewed: vital signs, nurses notes, lab test result(s), EKG, radiologic studies, pkl plain films. ED course: Patient feeling well. Not in any distress. Discussed lab. EKG and X' rays with patient. Advised to follow up with PCP in 2 to 3 days. patient understood instructions. 09/11 21:21 Order name: Basic Metabolic Panel rv 09/11 21:21 Order name: CBC with Diff rv 09/11 21:21 Order name: LFT's rv 09/11 21:21 Order name: Magnesium rv 09/11 21:21 Order name: NT PRO-BNP rv 09/11 21:21 Order name: PT-INR rv 09/11 21:21 Order name: Troponin (emerg Dept Use Only) rv 09/11 21:48 Order name: Protime (+INR); Complete Time: 22:02 EDMS 09/11 21:49 Order name: CBC with Automated Diff; Complete Time: 22:02 EDMS 09/11 21:59 Order name: Basic Metabolic Panel; Complete Time: 22:02 EDMS 09/11 21:59 Order name: Liver (Hepatic) Function; Complete Time: 22:02 EDMS 09/11 21:59 Order name: Troponin (Emerg Dept Use Only); Complete Time: 22:02 EDMS 09/11 21:59 Order name: NT PRO-BNP; Complete Time: 22:02 EDMS 09/11 21:59 Order name: Magnesium; Complete Time: 22:02 EDMS 09/11 21:21 Order name: XRAY Chest (1 view) rv 09/11 21:21 Order name: EKG; Complete Time: 21:22 rv 09/11 21:21 Order name: Cardiac monitoring; Complete Time: 21:28 rv 09/11 21:21 Order name: EKG - Nurse/Tech; Complete Time: 21:28 rv 09/11 21:21 Order name: IV Saline Lock; Complete Time: 21:28 rv 09/11 21:21 Order name: Labs collected and sent; Complete Time: 21:28 rv 09/11 21:21 Order name: O2 Per Protocol; Complete Time: 21:28 rv 09/11 21:21 Order name: O2 Sat Monitoring; Complete Time: :28 rv Administered Medications: No medications were administered Disposition: 09/11/20 22:11 Discharged to Home. Impression: Uncontrolled hypertension. Asymptomatic. - Condition is Stable. - Medication Reconciliation Form, Thank You Letter, Antibiotic Education, Prescription Opioid Use form. - Follow up: Private Physician; When: 2 - 3 days; Reason: Re-evaluation by your physician. - Problem is new. - Symptoms have improved. Signatures: Dispatcher [employer] EDOK Maurilio Wesley MD MD pkl Mika Sandoval RN RN rv Bulmaro Bustamante RN RN rr5 Corrections: (The following items were deleted from the chart) 23:06 22:11 09/11/2020 22:11 Discharged to Home. Impression: Uncontrolled hypertension. rr5 Asymptomatic. Condition is Stable. Forms are Medication Reconciliation Form, Thank You Letter, Antibiotic Education, Prescription Opioid Use. Follow up: Private Physician; When: 2 - 3 days; Reason: Re-evaluation by your physician. Problem is new. Symptoms have improved. pkl
--- OUTSIDE RECORDS SUMMARY | 2020-09-11 22:30 | XMS REPORT | Continuity of Care Document ---
:1930 Author Organization [facility] t Address [address] [place] [address] Care Team Providers Name Role Phone Doctor [...] ID 2019-07-25 2019-07-25 Orders Doctor GONZALEZ [id number] 00:00:00 00:00:00 Only Unassigned, ELIZABETH [id number] [place] [id number] 2019-07-14 2019-07-14 Orders Doctor GONZALEZ [id number] 00:00:00 00:00:00 Only Unassigned, ELIZABETH [id number] [place] [facility] [id number] [id number] 2019-07-05 2019-07-05 Orders Doctor GONZALEZ [id number] 00:00:00 00:00:00 Only Unassigned, ELIZABETH [id number] [place] [facility] [id number] [id number] 2019-07-04 2019-07-04 Orders Doctor LISA [id number] 00:00:00 00:00:00 Only Unassigned, ELIZABETH [id number] [place] [facility] [id number] [id number] 2019-06-30 2019-06-30 Orders Doctor LISA [id number] 00:00:00 00:00:00 Only Unassigned, ELIZABETH [id number] [place] [facility] [id number] [id number] 2019-06-27 2019-06-27 Orders Doctor LISA Kristine.[id number] 00:00:00 00:00:00 Only Unassigned, ELIZABETH [id number] [place] [facility] [id number] [id number] 2019-06-23 2019-06-23 Orders Doctor LISA [id number] 00:00:00 00:00:00 Only Unassigned, ELIZABETH [id number] [place] [facility] [id number] [id number] 2019-06-20 2019-06-20 Chief Nurse Executive 1, [facility] [id number] 14:37:41 14:52:41 Visit [place] [id number] [place] [id number] [place] [id number] 2019-06-16 2019-06-16 Orders Doctor GONZALEZ Kristine.[id number] 00:00:00 00:00:00 Only Unassigned, ELIZABETH [id number] [place] [facility] [id number] [id number] 2019-06-06 2019-06-06 Orders Doctor GONZALEZ Kristine.[id number] 00:00:00 00:00:00 Only Unassigned, ELIZABETH [id number] [place] [facility] [id number] 009 Results This patient has no known results.
--- NOTE | 2020-09-12 08:08 | RAD REPORT ---
EXAM DESCRIPTION: Hung Single View09/11/2020 9:48 pm CLINICAL HISTORY: Atrial fibrillation COMPARISON: 2019 FINDINGS: Mild opacities are present within the lungs peripherally. The heart is moderately enlarged IMPRESSION: Mild opacities within the peripheries of the lungs probably combination of an acute pro cess such as pneumonitis superimposed over chronic changes
--- NOTE | 2020-09-12 08:49 | EKG ---
Test Date: 2020-09-11 Test Time: 21:25:37 [employer] Demonstrator: RR MEASUREMENT RESULTS: Intervals: Rate: 66 NV: QRSD: 78 QT: 386 QTc: 404 [place]: P: NV: QRS: -9 T: 21 INTERPRETIVE STATEMENTS: Atrial fibrillation Abnormal ECG Compared to ECG 05/28/2020 16:39:47 Ventricular premature complex(es) no longer present Left ventricular hypertrophy no longer present ST (T wave) deviation no longer present Electronically Signed On 09-12-20 08:48:24 CDT by Teo Lawrence
[2020-09-12 15:00] VITALS: TEMP 98.3
[2020-09-12 15:08] VITALS: O2SAT 98
[2020-09-12 15:12] VITALS: BP 115/75
== END 2020-09-11 23:06 | disposition home or self-care (01) ==
LOC: ER 20:36 → EDSTATUS 22:25 → ER 23:06
DX: I10 Essential (primary) hypertension (principal); I48.91 Unspecified atrial fibrillation; I50.9 Heart failure, unspecified; E78.5 Hyperlipidemia, unspecified; G30.9 Alzheimer's disease, unspecified; F02.80 Dementia in other diseases classified elsewhere, unspecified severity, without behavioral disturbance, psychotic disturbance, mood disturbance, and anxiety; Z79.82 Long term (current) use of aspirin
CPT/HCPCS: 36415; 71045; 80048; 80076; 83735; 83880; 84484; 85025; 85610; 93005; 99284